=== PATIENT | female | born 2005 | race Caucasian/White ===

== ENCOUNTER 2025-02-12 23:05 | Emergency (ER) | payer OTHER, SELFPAY ==
[2025-02-12 23:07] VITALS: BP 124/60
[2025-02-12 23:22] LABS: Urine Albumin 3+ (Neg - Trace); Urine Bilirubin 2+ (Negative); Urine Character Slightly Cloudy (Clear); Urine Glucose Negative (Negative); Urine Ketone Negative (Negative); Urine Leukocyte 3+ (Negative); Urine Nitrite Positive (Negative); Urine Occult Blood 4+ (Negative); Urine Specific Gravity 1.025 (<1.030); Urine Urobilinogen 3+ (Neg - 1+)
[2025-02-12 23:23] LABS: Urine Color Orange
[2025-02-12 23:50] LABS: Urine Red Blood Cell >100 /HPF (0-2); Urine White Cell >100 /HPF (0-5)
[2025-02-12 23:51] LABS: Urine Bacteria Many (Negative)
--- NOTE | 2025-02-13 00:05 | ED.GENMED ---
History of Present Illness
General
Chief Complaint: Urinary Symptoms
Source: patient
Exam Limitations: none
Time Seen by Provider: 02/12/25 23:56
History of Present Illness
History of Present Illness:
19-year-old female few days dysuria frequency, burning when she urinates no nausea or vomiting no flank pain no fevers never had a UTI before, has been using [id number] Azo
Past History
Past History
ED Past Medical History: None
ED Past Surgical History: None
Social History
Tobacco: Non-smoker
Alcohol: None
Drug: None
Personal: Single
Living: with family
Review of Systems
Review of Systems
All Other Systems: Not applicable
Constitutional: Denies fever or fatigue
ABD/GI: Reports abdominal pain (Mild suprapubic)
: Reports dysuria, frequency and urgency; Denies flank pain
Skin: Reports no symptoms
Neurological: Reports no symptoms
Phy Exam
Physical Exam
Physical Exam:
Physical Exam
General: no apparent distress, not acutely ill
Neck: No jaundice
Heart: s1/s2 regular rate and rhythm, no murmur. equal radial pulses.
Lungs: no acute respiratory distress. clear bilaterally
Abdomen: Soft minimal suprapubic tenderness no CVA tenderness
Neuro: alert and oriented. no focal neurological deficits
Skin: no rash
Psychiatric: well kept. interactive and cooperative
Extremities: no edema.
Course
Orders/Labs/Results
Orders:
Orders
02/12/25 23:14
Urinalysis Reflex To Culture Urgent
Date Specimen was Collected: 02/12/25
Time Specimen was Collected: 23:10
Urine Microscopic Reflex Cult Urgent
Urine Culture Urgent
LUDIVINA Source: U
Specimen Description:
Date Specimen was Collected: 02/12/25
Time Specimen was Collected: 23:10
02/13/25 00:03
Ibuprofen [Motrin] 600 mg PO NOW STA
Sulfamethox./Trimethoprim Ds [Bactrim Ds 800 mg/160 mg] 1 tablet PO NOW STA
Abnormal Lab Results
02/12/25
23:14
Ur Occult Blood Reflex 4+ A
(Negative)
Urine Nitrite (Reflex) Positive A
(Negative)
Urine Bilirubin 2+ A
(Negative)
Urine Urobilinogen 3+ A
(Neg - 1+)
Leukocyte Esterase Rfl 3+ A
(Negative)
Urine RBC >100 A /HPF
(0-2)
Urine WBC (Reflex) >100 A /HPF
(0-5)
Urine Bacteria (Reflex) Many A
(Negative)
Urine Albumin (Reflex) 3+ A
(Neg - Trace)
Vital Signs
Initial and Last Documented VS:
Initial Vital Signs
Temp Pulse Resp BP Pulse Ox
97.8 F 82 24 124/60 98
02/12/25 23:07 02/12/25 23:07 02/12/25 23:07 02/12/25 23:07 02/12/25 23:07
Last Documented Vital Signs
Temp Pulse Resp BP Pulse Ox
97.8 F 82 24 124/60 98
02/12/25 23:07 02/12/25 23:07 02/12/25 23:07 02/12/25 23:07 02/12/25 23:07
MDM/Problems Addressed
Differential Diagnosis Includes:
UTI Asim STD doubt appendix
MDM/Problems Addressed:
UTI sent
*Critical Care Note
Total Time (30-74mins, 75-104mins- exclusive of procedures): Not Applicable
Update Note
Update Note:
Will treat for UTI with Bactrim, check culture
ED Attending Note
-
Portions of this chart may have been created with voice recognition software.� Occasional wrong word or��sound alike� substitutions may have occurred due to the inherent limitations of voice recognition software.
Discharge Plan
Departure
Patient Disposition: Home (Routine Discharge)
Date of Disposition: 02/13/25
Time of Disposition: 00:04
Patient with high blood pressure during this ER visit?: No
Condition: Good
Discharge Problem:
UTI (urinary tract infection)
Instructions: Urinary Tract Infection, Adult (DC)
Prescriptions:
New
sulfamethoxazole-trimethoprim [Bactrim DS] 800-160 mg tablet
1 tab PO BID Qty: 14 0RF
ibuprofen 600 mg tablet
600 mg PO Q6H PRN (Reason: Pain) Qty: 20 0RF
Interventions
Interventions:
*Risk Screen - Suicide Last Done: 02/12/25 23:07
*Neglect/Abuse Screening Last Done: 02/12/25 23:07
Discharge Date and Time
Print Language: TURKISH
[2025-02-13 00:16] VITALS: BMI 24.3
[2025-02-13] MEDS: BACTRIM DS 800 MG/160 MG 1 TABLET PO (00:19)
[2025-02-13] MEDS: MOTRIN 600 MG PO (00:20)
== END 2025-02-13 00:32 | disposition home or self-care (01) ==
LOC: EMR 23:05
PROVIDERS: Physician Assistant; EMERGENCY PHYSICIAN Emergency Medicine
DX: N39.0 Urinary tract infection, site not specified (principal)
CPT/HCPCS: 99283; 81003; 81015; 87077; 87086; 87491; 87591